=== PATIENT | male | born 1980 | race Caucasian/White ===

== ENCOUNTER 2022-07-19 03:04 | Emergency (ER) | payer OTHER ==
[2022-07-19 03:20] LABS: BASOPHIL 0.6 % (0-2); EOSINOPHIL 1.3 % (0-5); HCT 44.4 % (42.0-52.0); HGB 15.4 g/dl (13.2-18.0); MCH 29.4 pg (25.0-31.0); MCHC 34.7 g/dL (32.0-36.0); MCV 84.7 fL (78.0-100.0); MONOCYTE 5.7 % (0-12); MPV 10.2 fL (6.0-9.5); NEUTROPHIL 56.1 % (41-80); NRBC 0; PLT 258 K/uL (150-400); RBC 5.24 M/uL (4.70-6.00); RDW 12.3 % (11.5-14.0); WBC 6.2 K/uL (4.0-10.5)
[2022-07-19 03:36] LABS: BILIRUBIN - TOTAL 0.5 mg/dL (0.2-1.0); CREATININE 1.1 mg/dL (0.67-1.17); GLOBULIN (CALCULATION) 3.7 g/dL; POTASSIUM 3.6 mmol/L (3.5-5.1); TOTAL PROTEIN 7.7 g/dL (6.4-8.2)
[2022-07-19 04:30] LABS: BILIRUBIN NEGATIVE (NEGATIVE); BLOOD 3+ Ery/uL (NEGATIVE); CLARITY CLEAR (CLEAR); COLOR YELLOW (YELLOW); GLUCOSE (U) NORMAL (NORMAL); LEUKOCYTES NEGATIVE Leu/uL (NEGATIVE); NITRITE NEGATIVE (NEGATIVE); PROTEIN NEGATIVE (NEGATIVE); SPECIFIC GRAVITY 1.015 (1.001-1.030); UROBILINOGEN 0.2 mg/dL (0.2-1.0)
[2022-07-19 04:45] LABS: URINARY WBC RARE
[2022-07-19 04:46] LABS: BACTERIA TRACE; SQUAMOUS EPITHELIAL CELLS RARE
[2022-07-19] MEDS ORDERED: FLOMAX0.4 MG PO (04:49)
[2022-07-19] MEDS ORDERED: ONDANSETRON ODT4 MG PO (04:49)
[2022-07-19] MEDS ORDERED: AZO STANDARD95 MG PO (04:49)
[2022-07-19] MEDS ORDERED: NORCO 5-325 TA1 EACH PO (04:49)
== END 2022-07-19 05:02 | disposition home or self-care (01) ==
LOC: FER 03:04
PROVIDERS: Emergency Medicine
DX: N13.2 Hydronephrosis with renal and ureteral calculous obstruction (principal)
CPT/HCPCS: 36415; 80053; 81001; 83690; 85025; J1885; J2405; J7030